=== PATIENT | female | born 1980 | race Caucasian/White ===

== ENCOUNTER 2023-05-01 22:09 | Inpatient (IN) | payer OTHER ==
[2023-05-01 23:00] VITALS: BMI 28.1
[2023-05-01] MEDS ORDERED: Ondansetron PF 4 MG/2 ML Vial IVP PRN (23:03)
[2023-05-01] MEDS: Morphine 2 MG/ML VIAL SLOW IVP PRN (23:57)
[2023-05-01] MEDS ORDERED: Piperacillin/Tazobactam 3.375 GM in Sodium Chloride 0.9% 100 ML IVPB SCH (23:59)
[2023-05-02] MEDS: Lactated Ringer's 1,000 ML IV SCH ×2 (00:01→12:28)
[2023-05-02] MEDS: Piperacillin/Tazobactam 3.375 GM in Sodium Chloride 0.9% 100 ML IVPB SCH ×3 (00:08→16:00)
[2023-05-02 03:32] LABS: #Eosinphils 0.4 10x3/uL (0.0-0.5); #Monocytes 0.7 10x3/uL (0.0-1.1); #Neutrophils 4.4 10x3/uL (1.5-8.4); %Basophils 0.5 % (0.0-2.0); %Eosinophils 5.5 % (0.0-6.0); %Lymphocytes 27.8 % (18.0-47.0); %Monocytes 9.3 % (0.0-10.0); %Neutrophils 56.4 % (40.0-75.0); Hematocrit 26.1 % (34.9-44.5); Mean Corpuscular HGB CONC 34.5 g/dL (32.0-36.0); Mean Corpuscular Hemoglobin 30.1 pg (27.0-33.0); Mean Corpuscular Volume 87.3 fl (81.6-98.3); Mean Platelet Volume 10.2 fl (7.4-10.4); Platelet Count 312 10x3/uL (150-450); RBC Distribution Width 12.2 % (11.5-14.5); Red Blood Cell (RBC) Count 2.99 10x6/uL (3.90-5.03); White Blood Cell (WBC) Count 7.8 10x3/uL (3.5-10.5)
[2023-05-02 03:59] LABS: ALT (SGPT) 30 U/L (8-55); AST (SGOT) 15 U/L (5-34); Alkaline Phosphatase 79 U/L (40-110); Anion Gap 8 mmol/L (10-20); BUN (Urea Nitrogen) 13 mg/dL (7.0-18.7); Bilirubin, Total 0.8 mg/dL (0.2-1.2); Calc. Creatinine Clearance 123 mL/min (70-130); Calcium 8.1 mg/dL (7.8-10.44); Carbon Dioxide 28 mmol/L (22-29); Chloride 106 mmol/L (98-107); Estimated GFR 105; Globulin 2.1 g/dL (2.4-3.5); Glucose 95 mg/dL (70-105); Potassium 3.4 mmol/L (3.5-5.1); Protein, Total 5.1 g/dL (6.0-8.3); Sodium 139 mmol/L (136-145)
[2023-05-02] MEDS: Morphine 2 MG/ML VIAL SLOW IVP PRN (06:35)
[2023-05-02] MEDS: Acetaminophen 500 MG TAB PO PRN (11:14)
[2023-05-02] MEDS: HYDROcodone/Acetaminophen 10/325 mg Tablet PO PRN ×2 (16:00→22:12)
[2023-05-03] MEDS: Acetaminophen 500 MG TAB PO PRN (00:38)
[2023-05-03] MEDS: Lactated Ringer's 1,000 ML IV SCH (06:14)
[2023-05-03 07:50] VITALS: BP 96/52; TEMP 98.8
== END 2023-05-03 08:50 | disposition home or self-care (01) | DRG 920 ==
LOC: CSHPP 22:09
PROVIDERS: ADMIT Obstetrics & Gynecology; ATTEND Obstetrics & Gynecology
DX: K91.871 Postprocedural hematoma of a digestive system organ or structure following other procedure (principal); T81.49XA Infection following a procedure, other surgical site, initial encounter; D25.9 Leiomyoma of uterus, unspecified; Z98.890 Other specified postprocedural states; Z90.710 Acquired absence of both cervix and uterus; Y83.8 Other surgical procedures as the cause of abnormal reaction of the patient, or of later complication, without mention of misadventure at the time of the procedure; M79.81 Nontraumatic hematoma of soft tissue
CPT/HCPCS: 36415; 74177; 80053; 81001; 83605; 85025; 85610; 85730; 87040; 96365; 96375; J1885; J2272; J2405; J2543; J3010; J3490; J7120; Q9967